=== PATIENT | female | born 1975 | race African-American/Black ===

== ENCOUNTER 2019-02-01 03:43 | Emergency (ER) | payer MEDICAID ==
[~2019-02-01] VITALS: Ht 165.1 cm; Wt 88.5 kg
[~2019-02-01 03:43] MED LIST: ALBUTEROL2.5 MG/3 M HHN; CIPRO250 MG PO; PEPCID40 MG PO; PEPTO-BISMOL262 M1 PO; ZOFRAN ODT4 MG ORAL
[2019-02-01 04:05] VITALS: BP 130/86
--- NOTE | 2019-02-01 04:05 | NUR ---
ED Nurse Note: Patient walked in ER c/o abdominal pain, N/V/D since 99. Per patient she went to sleep and started vomiting, and severe diarrhea. AAO x4, VSS at this time, skin is dry, intact, warm to touch.
--- NOTE | 2019-02-01 04:06 | Emergency Room Report ---
History of Present Illness General Chief Complaint: Nausea, Vomiting, and Diarrhea Source: Patient Present Illness HPI Is a 43-year-old female with history of asthma. She presents with chief complaint abdominal pain with nausea vomiting and diarrhea. Onset tonight. Unable to keep anything down. Multiple episode vomiting. Told in she noticed some specks of blood. Diarrhea is watery. No sick contact. Pain is sharp and crampy. 8 out of 10. Denies any other complaint. Allergies: Coded Allergies: CODEINE (Verified Allergy, Mild, Hives, 01/26/13) Patient History Past Medical History: see triage record, old chart reviewed, asthma Past Surgical History: none Pertinent Family History: none Social History: Denies: smoking Last Menstrual Period: 01/24/19 Now: No Immunizations: other Reviewed Nursing Documentation: PMH: Agreed; PSxH: Agreed Nursing Documentation-PMH Past Medical History: No History, Except For Hx Asthma: Yes Review of Systems Eye: Denies: eye pain, blurred vision ENT: Denies: ear pain, nose congestion, throat swelling Respiratory: Denies: cough, shortness of breath Cardiovascular: Denies: chest pain, palpitations Gastrointestinal: Reports: abdominal pain, diarrhea, nausea, vomiting Musculoskeletal: Denies: back pain, joint pain Skin: Denies: rash Neurological: Denies: headache, numbness Endocrine: Denies: increased thirst, increased urine Hematologic/Lymphatic: Denies: easy bruising All Other Systems: negative except mentioned in HPI Physical Exam Vital Signs Date Time Temp Pulse Resp B/P (MAP) Pulse Ox O2 Delivery O2 Flow Rate FiO2 02/01/19 03:45 98.4 80 14 130/86 96 Room Air vitals normal Sp02 EP Interpretation: reviewed, normal General Appearance: well appearing, no apparent distress, alert Head: normocephalic, atraumatic Eyes: bilateral eye PERRL, bilateral eye EOMI ENT: hearing grossly normal, normal pharynx, uvula midline - Very elongated Neck: full range of motion, supple, no meningismus Respiratory: chest non-tender, lungs clear, normal breath sounds Cardiovascular #1: regular rate, rhythm, no murmur Gastrointestinal: normal bowel sounds, non tender, no mass, no organomegaly, no bruit, non-distended Musculoskeletal: back normal, gait/station normal, normal range of motion Psychiatric: mood/affect normal Skin: warm/dry Medical Decision Making Diagnostic Impression: Primary Impression: Nausea, vomiting, and diarrhea Additional Impression: Abdominal pain Qualified Codes: R10.84 - Generalized abdominal pain ER Course Patient with abdominal pain with nausea vomiting and diarrhea. Onset just tonight. This most likely a gastroenteritis. She does have a mild white count. This probably a stress response and infectious cause. She felt better now. No abdominal pain. No evidence of acute abdomen or obstruction. No evidence of appendicitis. She felt better now. Lab Results Impression labs with elevation of WBC Last Vital Signs Date Time Temp Pulse Resp B/P (MAP) Pulse Ox O2 Delivery O2 Flow Rate FiO2 02/01/19 03:45 98.4 80 14 130/86 96 Room Air Status: improved Disposition: HOME, SELF-CARE Condition: Stable Scripts Ondansetron (Zofran) 4 Mg Tablet 4 MG ORAL Q6H PRN for Nausea & Vomiting, #10 TAB 0 Refills Prov: Kin Braxton MD 02/01/19 Referrals: [facility],REFERR[facility] (PCP) Additional Instructions: Increase fluids. Follow-up with your DrPayal in 2 to 3 days and not better. Return for fever, increasing pain, increasing vomiting or any concern. Kin Braxton MD Feb 01, 2019 04:06
[2019-02-01] MEDS ORDERED: Ketorolac 30mg Inj IV ONE (04:15)
[2019-02-01 04:18] LABS: BASOPHILS % (AUTO) 0.4 % (0.0-2.0); EOSINOPHILS % (AUTO) 0.6 % (0.0-3.0); HEMATOCRIT 42.7 % (37.0-47.0); HEMOGLOBIN 13.8 G/DL (12.0-16.0); LYMPHOCYTES % (AUTO) 11.4 % (20.0-45.0); MEAN CORPUSCULAR VOLUME 86 FL (80-99); NEUTROPHILS % (AUTO) 81.6 % (45.0-75.0); PLATELET COUNT 364 K/UL (150-450); RED BLOOD COUNT 4.99 M/UL (4.20-5.40); RED CELL DISTRIBUTION WIDTH 11.6 % (11.6-14.8); WHITE BLOOD COUNT 14.9 K/UL (4.8-10.8)
[2019-02-01 04:30] LABS: ANION GAP 9 mmol/L (5-15); BLOOD UREA NITROGEN 11 mg/dL (7-18); CALCIUM 9.4 MG/DL (8.5-10.1); CARBON DIOXIDE 29 MMOL/L (21-32); CHLORIDE 101 MMOL/L (98-107); CREATININE 0.9 MG/DL (0.55-1.30); POTASSIUM 3.8 MMOL/L (3.5-5.1); SODIUM 139 MMOL/L (136-145)
[2019-02-01 04:34] LABS: ALANINE AMINOTRANSFERASE 31 U/L (12-78); ALBUMIN/GLOBULIN RATIO 0.8 (1.0-2.7); ALKALINE PHOSPHATASE 91 U/L (46-116); ASPARTATE AMINO TRANSFERASE 22 U/L (15-37); BILIRUBIN,TOTAL 0.2 MG/DL (0.2-1.0)
--- NOTE | 2019-02-01 04:43 | NUR ---
ED Nurse Note: Patient was medicated, states that feel better.VSS at this time.
[2019-02-01 04:48] LABS: APPEARANCE,URINE CLEAR; BILIRUBIN, URINE NEGATIVE (NEGATIVE); GLUCOSE, URINE (UA) NEGATIVE (NEGATIVE); KETONES,URINE NEGATIVE (NEGATIVE); LEUKOCYTE ESTERASE ,URINE NEGATIVE (NEGATIVE); NITRITE,URINE NEGATIVE (NEGATIVE); PH,URINE 6 (4.5-8.0); PROTEIN,URINE 1+ (NEGATIVE); UROBILINOGEN,URINE NORMAL MG/DL (0.0-1.0)
[2019-02-01 04:58] LABS: COLOR,URINE YELLOW
[2019-02-01] MEDS ORDERED: ZOFRAN4 MG ORAL (05:07)
[2019-02-01 05:13] VITALS: BP 130/86
--- NOTE | 2019-02-01 05:13 | NUR ---
ER DISCHARGE NOTE: Patient is cleared to be discharged per ERMD, pt is aox4, on room air, with stable vital signs. pt was given dc and prescription instructions, pt was able to verbalize understanding, pt id band and iv site removed without complications. pt is able to ambulate with steady gait. pt took all belongings.
[2019-02-01] MEDS ORDERED: HYDROcodone/Acetamin 5/325 tab ORAL ONE (05:15)
== END 2019-02-01 05:13 | disposition home or self-care (01) ==
LOC: EMR 04:05
DX: R11.2 Nausea with vomiting, unspecified (principal); R19.7 Diarrhea, unspecified; R10.84 Generalized abdominal pain; Z88.6 Allergy status to analgesic agent
CPT/HCPCS: 36415; 80053; 81003; 81025; 83690; 85025; 96361; 96374; 96375; 99284; J1885; J2405

== ENCOUNTER → 2019-10-17 | Emergency (ER) | payer MEDICAID ==
[~2019-10-17] VITALS: Ht 165.1 cm; Wt 86.2 kg
[~2019-10-17] MED LIST changes: +ERYTHROMYCIN1 G1 RIGHT EYE; +LIDODERM700 M1 TOPIC; +ROBAXIN-750750 MG PO; +ZOFRAN4 MG ORAL
[2019-10-17 15:25] VITALS: BP 127/86
--- NOTE | 2019-10-17 15:25 | NUR ---
ED Nurse Note: Pt ambulated to ED with c/o RT eye swelling and pain. Per pt she said condition started yesterday. Pt is AOx4; calm and cooperative. Placed on bed.
--- NOTE | 2019-10-17 15:30 | NUR ---
ED Nurse Note: ERMD on bedside.
[2019-10-17 15:46] VITALS: BP 128/88
--- NOTE | 2019-10-17 15:46 | NUR ---
ER DISCHARGE NOTE: Patient is cleared to be discharged per ERMD, pt is aox4, on room air, with stable vital signs. pt was given dc and prescription instructions, pt was able to verbalize understanding, pt id band removed. pt is able to ambulate with steady gait. pt took all belongings.
--- NOTE | 2019-10-17 21:46 | Emergency Room Report ---
History of Present Illness General Chief Complaint: Eye Problems Source: Patient Present Illness HPI 44-year-old female presents ED for evaluation. Complaining of pain and swelling to the right eyelid x2 days. Dull, 6 out of 10, nonradiating. Denies photophobia or blurry vision. Also complaining of back pain for the last 5 days. Mid upper back. Worse with twisting and bending. Denies chest pain or shortness of breath. No other aggravating relieving factors. Denies any other associated symptoms Allergies: Coded Allergies: CODEINE (Verified Allergy, Mild, Hives, 01/26/13) Patient History Past Medical History: asthma Past Surgical History: none Pertinent Family History: none Social History: Denies: smoking, alcohol use, drug use Last Menstrual Period: 10/16/19 Now: No Immunizations: UTD Reviewed Nursing Documentation: PMH: Agreed; PSxH: Agreed Nursing Documentation-PMH Past Medical History: No History, Except For Hx Asthma: Yes Review of Systems All Other Systems: negative except mentioned in HPI Physical Exam Vital Signs Date Time Temp Pulse Resp B/P (MAP) Pulse Ox O2 Delivery O2 Flow Rate FiO2 10/17/19 15:12 98.1 78 16 127/86 (100) 94 Room Air Sp02 EP Interpretation: reviewed, normal General Appearance: no apparent distress, alert, GCS 15, non-toxic Head: normocephalic Eyes: right eye lid inflammation - R upper eyelid stye; bilateral eye normal inspection, bilateral eye PERRL, bilateral eye EOMI ENT: normal ENT inspection Neck: normal inspection Respiratory: chest non-tender, lungs clear, normal breath sounds, speaking full sentences Cardiovascular #1: regular rate, rhythm, no edema Gastrointestinal: normal inspection Rectal: deferred Genitourinary: no CVA tenderness Musculoskeletal: tender - upper thoracic paraspinal pain Neurologic: alert, motor strength/tone normal, oriented x3, sensory intact, responsive, speech normal Psychiatric: normal inspection Skin: no rash Lymphatic: normal inspection Medical Decision Making Diagnostic Impression: Primary Impression: Upper back strain Qualified Codes: S29.012A - Strain of muscle and tendon of back wall of thorax , initial encounter Additional Impression: Stye Qualified Codes: H00.011 - Hordeolum externum right upper eyelid ER Course Hospital Course 44 yo F presents with R eye pain. upper back pain Differential diagnoses include: conjunctivitis, traumatic iritis, foreign body, corneal abrasion Clinical course Patient placed on stretcher. After initial history physical exam reveals female in no acute distress. There is a stye to the lower right upper eyelid. No change in visual acuity. Remainder of exam unremarkable. Patient does have some paraspinal thoracic upper back pain. No veretebral tenderness. I discussed findings with patient. Pain is muscular. Will discharge home. Safe for discharge for close outpatient follow-up. I will provide referrals Diagnosis - upper back strain, stye Stable and discharged to home with prescription for erythromycin, robaxin, lidoderm. Followup with PMD/Optho. Return to ED if symptoms recur or worsen Last Vital Signs Date Time Temp Pulse Resp B/P (MAP) Pulse Ox O2 Delivery O2 Flow Rate FiO2 10/17/19 15:46 98.1 70 18 128/88 99 Room Air Status: improved Disposition: HOME, SELF-CARE Condition: Stable Scripts Lidocaine Patch* (Lidoderm Patch*) 1 Each Adh..patch 1 PATCH TOPIC DAILY, #7 PATCH 0 Refills Patch(es) may remain in place for up to 12 hours in any 24-hour period. Prov: Brian Rosa MD 10/17/19 Methocarbamol* (ROBAXIN-750*) 750 Mg Tablet 750 MG PO TID, #21 TAB 0 Refills Prov: Brian Rosa MD 10/17/19 Erythromycin Base (Erythromycin) 1 Gm Oint...g. 1 APPLIC RIGHT EYE QID for 7 Days, GM Prov: Brian Rosa MD 10/17/19 Referrals: Huan Watts MD Patient Instructions: Stye, Thoracic Strain, [id number] Brian Rosa MD Oct 17, 2019 21:46
== END | disposition home or self-care (01) ==
LOC: EMR 15:37
DX: H00.011 Hordeolum externum right upper eyelid (principal); S29.012A Strain of muscle and tendon of back wall of thorax, initial encounter; X50.1XXA Overexertion from prolonged static or awkward postures, initial encounter; Y92.9 Unspecified place or not applicable; Z88.6 Allergy status to analgesic agent
CPT/HCPCS: 99282